=== PATIENT | male | born 1985 | race Caucasian/White ===

== ENCOUNTER 2018-02-20 05:57 | Inpatient (IN) | payer SELFPAY ==
[2018-02-20] VITALS (8 sets, daily range): BP systolic 109–126; BP diastolic 55–86; PULSE 52–75; RESP 9–18; TEMP 97.7–98; O2SAT 95–96
[~2018-02-20] VITALS: Ht 180.3 cm; Wt 89.0 kg
[2018-02-20] MEDS ORDERED: NALOXONE HCL 0.4 MG/ML AMP ONE (06:11)
--- NOTE | 2018-02-20 06:12 | PD ---
HPI . Heroin overdose Chief Complaint: OD/ Ingestion Time Seen by Provider: 06:03 Travel History International Travel<30 days: No Contact w/Intl Traveler<30days: No Traveled to known affect area: No History of Present Illness HPI Patient is found in a hotel he apparently injected himself with "$5 worth of heroin and was found obtunded unresponsive respiratory impression deciding paramedics arrived to give an IV access and then 0.4 mg of Narcan patient wakes up arrives there is no sign of trauma he was found lying on a couch and in the ER he is awake but still somnolent no other past medical history ROS and HPI is limited due to patient being intoxicated with heroin.. pt after repeated dose of narcan i nER he is Nauseous and I ask if there was Fentanyl in the IV " probably " he replies , Pt may need repeat dosing of Narcan , he received 0.4mg in EMS and 0.4 mg in ER Exam room on first 30 minutes of arrival [facility] Past Medical History Medical History: Denies Significant Hx Past Surgical History Surgical History: No Previous Surgery Social History Alcohol Use: No Tobacco Use: Yes Substance Use: Yes (HEROIN, METH ) Allergies-Medications (Allergen,Severity, Reaction): Coded Allergies: No Known Allergies (Unverified , 02/20/18) Reported Meds & Prescriptions Reported Meds & Active Scripts Active No Active Prescriptions or Reported Medications Review of Systems ROS Limitations: Intoxication (Heroin overdose) Physical Exam Narrative GENERAL: Mildly somnolent but awake no signs of trauma SKIN: Warm and dry. HEAD: Atraumatic. Normocephalic. No signs of trauma EYES: Pupils equal and round. No scleral icterus. No injection or drainage. ENT: No nasal bleeding or discharge. Mucous membranes pink and moist. NECK: Trachea midline. No JVD. CARDIOVASCULAR: Regular rate and rhythm. RESPIRATORY: No accessory muscle use. Clear to auscultation. Breath sounds equal bilaterally. GASTROINTESTINAL: Abdomen soft, non-tender, nondistended. Hepatic and splenic margins not palpable. MUSCULOSKELETAL: Extremities without clubbing, cyanosis, or edema. No obvious deformities. NEUROLOGICAL: Awake . No obvious cranial nerve deficits. Motor grossly within normal limits. Five out of 5 muscle strength in the arms and legs. PSYCHIATRIC: Somnolent but arousable Data Data Last Documented VS Vital Signs Date Time Temp Pulse Resp B/P (MAP) Pulse Ox O2 Delivery O2 Flow Rate FiO2 02/20/18 07:15 98 Partial Rebreather 15.00 02/20/18 06:04 98.0 65 18 117/57 (77) Orders Orders Naloxone Inj (Narcan Inj) (02/20/18 06:15) Naloxone Inj (Narcan Inj) (02/20/18 06:11) Ondansetron Odt (Zofran Odt) (02/20/18 06:15) Complete Blood Count With Diff (02/20/18 07:01) Comprehensive Metabolic Panel (02/20/18 07:01) Alcohol (Ethanol) (02/20/18 07:01) Chest, Single Ap (02/20/18 ) Naloxone Inj (Narcan Inj) (02/20/18 07:30) Metoclopramide Inj (Reglan Inj) (02/20/18 07:30) Naloxone Inj (Narcan Inj) (02/20/18 08:15) Admit Order (Ed Use Only) (02/20/18 09:55) Labs Laboratory Tests Test 02/20/18 07:11 White Blood Count 19.6 TH/MM3 Red Blood Count 4.66 MIL/MM3 Hemoglobin 14.1 GM/DL Hematocrit 42.8 % Mean Corpuscular Volume 91.9 FL Mean Corpuscular Hemoglobin 30.2 PG Mean Corpuscular Hemoglobin Concent 32.9 % Red Cell Distribution Width 12.5 % Platelet Count 277 TH/MM3 Mean Platelet Volume 7.9 FL Neutrophils (%) (Auto) 84.4 % Lymphocytes (%) (Auto) 9.0 % Monocytes (%) (Auto) 6.0 % Eosinophils (%) (Auto) 0.4 % Basophils (%) (Auto) 0.2 % Neutrophils # (Auto) 16.6 TH/MM3 Lymphocytes # (Auto) 1.8 TH/MM3 Monocytes # (Auto) 1.2 TH/MM3 Eosinophils # (Auto) 0.1 TH/MM3 Basophils # (Auto) 0.0 TH/MM3 CBC Comment DIFF FINAL Differential Comment Blood Urea Nitrogen 19 MG/DL Creatinine 0.90 MG/DL Random Glucose 151 MG/DL Total Protein 7.9 GM/DL Albumin 4.0 GM/DL Calcium Level 8.7 MG/DL Alkaline Phosphatase 65 U/L Aspartate Amino Transf (AST/SGOT) 73 U/L Alanine Aminotransferase (ALT/SGPT) 88 U/L Total Bilirubin 0.7 MG/DL Sodium Level 140 MEQ/L Potassium Level 3.7 MEQ/L Chloride Level 102 MEQ/L Carbon Dioxide Level 31.4 MEQ/L Anion Gap 7 MEQ/L Estimat Glomerular Filtration Rate 99 ML/MIN Ethyl Alcohol Level LESS THAN 3 MG/DL MDM Medical Decision Making Medical Screen Exam Complete: Yes Emergency Medical Condition: Yes Differential Diagnosis heroin IVDA overdose respiratory failure vs fentanyl overdose polysubstance overdose, otehr Narrative Course Pt given 0.4 mg Narcan EN route and in Exam I given another dose of Narcan, pt still sleepy and may have used extremely potent fentanyl and will need repeated doses of narcan , signed out to next MD at 7 AM Diagnosis Primary Impression: Heroin overdose Qualified Codes: T40.1X1A - Poisoning by heroin, accidental (unintentional), initial encounter Scripts No Active Prescriptions or Reported Meds Yvan Eubanks MD February 20, 2018 06:12
[2018-02-20] MEDS ORDERED: ONDANSETRON ODT 4 MG TAB PO ONE (06:15)
[2018-02-20] MEDS ORDERED: NALOXONE HCL 0.4 MG/ML AMP IV PUSH ONE ×2 (06:15→07:30)
--- NOTE | 2018-02-20 06:56 | PD ---
Physical Exam Date Seen by Provider: February 20, 2018 Time Seen by Provider: 06:55 Narrative The patient is a 32-year-old male who was initially evaluated by the previous physician. Please refer to the initial history, physical, diagnostic evaluation, and treatment modality plan. The patient was signed out at 7 AM with observation pending after heroin overdose. Data Data Last Documented VS Vital Signs Date Time Temp Pulse Resp B/P (MAP) Pulse Ox O2 Delivery O2 Flow Rate FiO2 02/20/18 07:15 98 Partial Rebreather 15.00 02/20/18 06:04 98.0 65 18 117/57 (77) Orders Orders Naloxone Inj (Narcan Inj) (02/20/18 06:15) Naloxone Inj (Narcan Inj) (02/20/18 06:11) Ondansetron Odt (Zofran Odt) (02/20/18 06:15) Complete Blood Count With Diff (02/20/18 07:01) Comprehensive Metabolic Panel (02/20/18 07:01) Alcohol (Ethanol) (02/20/18 07:01) Drug Screen, Random Urine (02/20/18 07:01) Chest, Single Ap (02/20/18 ) Naloxone Inj (Narcan Inj) (02/20/18 07:30) Metoclopramide Inj (Reglan Inj) (02/20/18 07:30) Naloxone Inj (Narcan Inj) (02/20/18 08:15) Admit Order (Ed Use Only) (02/20/18 09:55) Labs Laboratory Tests Test 02/20/18 07:11 White Blood Count 19.6 TH/MM3 Red Blood Count 4.66 MIL/MM3 Hemoglobin 14.1 GM/DL Hematocrit 42.8 % Mean Corpuscular Volume 91.9 FL Mean Corpuscular Hemoglobin 30.2 PG Mean Corpuscular Hemoglobin Concent 32.9 % Red Cell Distribution Width 12.5 % Platelet Count 277 TH/MM3 Mean Platelet Volume 7.9 FL Neutrophils (%) (Auto) 84.4 % Lymphocytes (%) (Auto) 9.0 % Monocytes (%) (Auto) 6.0 % Eosinophils (%) (Auto) 0.4 % Basophils (%) (Auto) 0.2 % Neutrophils # (Auto) 16.6 TH/MM3 Lymphocytes # (Auto) 1.8 TH/MM3 Monocytes # (Auto) 1.2 TH/MM3 Eosinophils # (Auto) 0.1 TH/MM3 Basophils # (Auto) 0.0 TH/MM3 CBC Comment DIFF FINAL Differential Comment Blood Urea Nitrogen 19 MG/DL Creatinine 0.90 MG/DL Random Glucose 151 MG/DL Total Protein 7.9 GM/DL Albumin 4.0 GM/DL Calcium Level 8.7 MG/DL Alkaline Phosphatase 65 U/L Aspartate Amino Transf (AST/SGOT) 73 U/L Alanine Aminotransferase (ALT/SGPT) 88 U/L Total Bilirubin 0.7 MG/DL Sodium Level 140 MEQ/L Potassium Level 3.7 MEQ/L Chloride Level 102 MEQ/L Carbon Dioxide Level 31.4 MEQ/L Anion Gap 7 MEQ/L Estimat Glomerular Filtration Rate 99 ML/MIN Ethyl Alcohol Level LESS THAN 3 MG/DL [facility] [place] Medical Record Reviewed: Yes Supervised Visit with BRITATNY: No Interpretation(s) Last Impressions Chest X-Ray 02/20/18 0000 Signed Impressions: CONCLUSION: 1. No acute cardiopulmonary disease. Laboratory Tests Test 02/20/18 07:11 White Blood Count 19.6 TH/MM3 Red Blood Count 4.66 MIL/MM3 Hemoglobin 14.1 GM/DL Hematocrit 42.8 % Mean Corpuscular Volume 91.9 FL Mean Corpuscular Hemoglobin 30.2 PG Mean Corpuscular Hemoglobin Concent 32.9 % Red Cell Distribution Width 12.5 % Platelet Count 277 TH/MM3 Mean Platelet Volume 7.9 FL Neutrophils (%) (Auto) 84.4 % Lymphocytes (%) (Auto) 9.0 % Monocytes (%) (Auto) 6.0 % Eosinophils (%) (Auto) 0.4 % Basophils (%) (Auto) 0.2 % Neutrophils # (Auto) 16.6 TH/MM3 Lymphocytes # (Auto) 1.8 TH/MM3 Monocytes # (Auto) 1.2 TH/MM3 Eosinophils # (Auto) 0.1 TH/MM3 Basophils # (Auto) 0.0 TH/MM3 CBC Comment DIFF FINAL Differential Comment Blood Urea Nitrogen 19 MG/DL Creatinine 0.90 MG/DL Random Glucose 151 MG/DL Total Protein 7.9 GM/DL Albumin 4.0 GM/DL Calcium Level 8.7 MG/DL Alkaline Phosphatase 65 U/L Aspartate Amino Transf (AST/SGOT) 73 U/L Alanine Aminotransferase (ALT/SGPT) 88 U/L Total Bilirubin 0.7 MG/DL Sodium Level 140 MEQ/L Potassium Level 3.7 MEQ/L Chloride Level 102 MEQ/L Carbon Dioxide Level 31.4 MEQ/L Anion Gap 7 MEQ/L Estimat Glomerular Filtration Rate 99 ML/MIN Ethyl Alcohol Level LESS THAN 3 MG/DL Differential Diagnosis Differential diagnosis includes heroin overdose, polysubstance abuse, opiate ingestion, alcohol intoxication, hypoxia, aspiration. Narrative Course The patient is a 32-year-old male was initially evaluated by the previous physician. Please refer to the initial history, physical, diagnostic evaluation , and treatment modality plan. The patient was signed out at 7 AM with observation pending after heroin overdose. The patient was injected Narcan 0.4 mg intravenously in the field, and then was redosed with Narcan 0.4 mg intravenously in the emergency department. The patient will be observed for evaluation of hypoxia after heroin ingestion and subsequent Narcan administration. The patient was reevaluated at 7 AM, was satting 88% on 4 L via nasal cannula. He was arousable with verbal stimuli. However, the patient was hypoxic on oxygen, therefore, chest x-ray was obtained. Alcohol level drug screen were sent to lab. The patient continued to be monitored. The patient was reevaluated at 7:15 AM, had desatted to 74%, was placed on a nonrebreather and administered Narcan 0.8 mg intravenously. The patient was reevaluated at 8 AM, was breathing at a respiratory rate of 8-10 /min, O2 sat 98% on nonrebreather. The patient was reevaluated at 8:15 AM, still has a respiratory rate of approximately 8-10, satting 99% on a nonrebreather. The patient is arousable to loud verbal stimuli and/or painful stimuli. Patient has multiple doses of Narcan, therefore, will be placed on a Narcan drip in an attempt to avoid intubation, patient will be admitted to intensive care unit. The patient was evaluated at 9:05 AM, his O2 sat is now 96% on O2 via nasal cannula at 4 L, currently on a Narcan drip, arousable to verbal stimuli. Critical Care Narrative Aggregate critical care time was 40 minutes. Time to perform other separately billable procedures was not included in the critical care time. My time did not include minutes spent treating any other patients simultaneously or on activities that did not directly contribute to the patient's treatment. The services I provided to this patient were to treat and/or prevent clinically significant deterioration that could result in: Anoxia, hypoxia, aspiration I provided critical care services requiring my management, as noted below: Chart data review, documentation time, medication orders and management, vital sign assessments/reviewing monitor data, ordering and reviewing lab tests, ordering and interpreting/reviewing x-rays and diagnostic studies, care of the patient and discussion of the patient with the admitting physicians. Physician Communication Physician Communication The on-call cut off saw operator was paged for admission. I discussed the patient with Dr. Palma who agrees with admission. Diagnosis Primary Impression: Heroin overdose Qualified Codes: T40.1X1A - Poisoning by heroin, accidental (unintentional), initial encounter Additional Impression: Hypoxia Admitting Information Admitting Physician Requests: Admit Scripts No Active Prescriptions or Reported Meds Condition: Stable Juanito Singh MD February 20, 2018 06:56
[2018-02-20 07:23] LABS: AUTOMATED NEUTROPHIL # 16.6 TH/MM3 (1.8-7.7); BASOPHIL % 0.2 % (0.0-2.0); EOSINOPHIL # 0.1 TH/MM3 (0-0.4); EOSINOPHIL % 0.4 % (0.0-4.0); HEMATOCRIT 42.8 % (39.0-51.0); HEMOGLOBIN 14.1 GM/DL (13.0-17.0); LYMPHOCYTE # 1.8 TH/MM3 (1.0-4.8); MEAN CELL VOLUME 91.9 FL (80.0-100.0); MEAN CORPUSCULAR HEMOGLOBIN 30.2 PG (27.0-34.0); MEAN CORPUSCULAR HGB CONC 32.9 % (32.0-36.0); MEAN PLATELET VOLUME 7.9 FL (7.0-11.0); MONOCYTE # 1.2 TH/MM3 (0-0.9); NEUT % 84.4 % (16.0-70.0); PLATELET COUNT 277 TH/MM3 (150-450); RED BLOOD COUNT 4.66 MIL/MM3 (4.50-5.90); RED CELL DISTRIBUTION WIDTH 12.5 % (11.6-17.2); WHITE BLOOD COUNT 19.6 TH/MM3 (4.0-11.0)
[2018-02-20] MEDS ORDERED: METOCLOPRAMIDE HCL 10 MG/2 ML VIAL IV PUSH ONE (07:30)
[2018-02-20 07:42] LABS: ALT (GPT) 88 U/L (12-78); AST (GOT) 73 U/L (15-37); BICARBONATE 31.4 MEQ/L (21.0-32.0); BLOOD UREA NITROGEN 19 MG/DL (7-18); CALCIUM 8.7 MG/DL (8.5-10.1); CHLORIDE 102 MEQ/L (98-107); GLOMERULAR FILTRATION RATE 99 ML/MIN (>89); GLUCOSE,RANDOM 151 MG/DL (74-106); SODIUM (NA) 140 MEQ/L (136-145)
[2018-02-20 07:44] LABS: ALKALINE PHOSPHATASE 65 U/L (45-117); TOTAL BILIRUBIN ADULT 0.7 MG/DL (0.2-1.0); TOTAL PROTEIN 7.9 GM/DL (6.4-8.2)
--- NOTE | 2018-02-20 07:53 | RADRPT ---
EXAM DATE: 02/20/2018 7:42 AM EDT AGE/SEX: 32 years / Male INDICATIONS: Shortness of breath after heroin overdose. CLINICAL DATA: This is the patient's initial encounter. Patient reports that signs and symptoms have been present for 1 day and indicates a pain score of 0/10. MEDICAL/SURGICAL HISTORY: None. None. COMPARISON: No prior [facility] exams available for comparison. FINDINGS: A single AP view of the chest demonstrates the lungs to be symmetrically aerated without evidence of mass, infiltrate or effusion. The cardiomediastinal contours are unremarkable. Osseous structures a re intact. CONCLUSION: 1. No acute cardiopulmonary disease. Electronically signed by: Medardo Wills MD 02/20/2018 7:52 AM EDT
[2018-02-20] MEDS ORDERED: NALOXONE INJ 4 MG in DEXTROSE 5% IN WATER INJ 246 ML IV PRN ×2 (08:15)
[2018-02-20] MEDS ORDERED: SENNOSIDES 8.6 MG TAB PO PRN (10:00)
[2018-02-20] MEDS ORDERED: CHLORHEXIDINE GLUCONATE 2 % 1 PACK (2 CLOTHS) TOP PRN (10:00)
[2018-02-20] MEDS ORDERED: LACTULOSE SYRUP 20 GM/30 ML CUP PO PRN (10:00)
[2018-02-20] MEDS ORDERED: RESP: ALBUTEROL 2.5 MG/IPRATROPIUM 0.5 MG NEB (PRN) INH (10:00)
[2018-02-20] MEDS ORDERED: MAGNESIUM HYDROXIDE SUSP 30 ML CUP PO PRN (10:00)
[2018-02-20] MEDS ORDERED: NURSING INFORMATION XX SCH (10:00)
[2018-02-20] MEDS ORDERED: SODIUM CHLORIDE 0.9% FLUSH 10 ML FLUSH IV FLUSH PRN (10:00)
[2018-02-20] MEDS ORDERED: BISACODYL 10 MG SUPP RECTAL PRN (10:00)
[2018-02-20] MEDS ORDERED: METOCLOPRAMIDE HCL 10 MG/2 ML VIAL IV PUSH PRN (10:00)
[2018-02-20] MEDS: RESP: ALBUTEROL 2.5 MG/IPRATROPIUM 0.5 MG NEB (SCH) INH ×2 (11:18→15:02)
[2018-02-20] MEDS ORDERED: ONDANSETRON ODT 4 MG TAB PO PRN (11:30)
[2018-02-20] MEDS ORDERED: D5-1/2 NS + KCL 20 MEQ INJ 1,000 ML IV SCH (12:00)
[2018-02-20] MEDS ORDERED: ENOXAPARIN SODIUM 40 MG/0.4 ML SYRINGE SQ SCH (12:00)
--- NOTE | 2018-02-20 13:58 | HHI.HP ---
HPI Service Critical Care Medicine Primary Care Physician No Primary Care Physician Admission Diagnosis Heroin overdose, hypoxia Diagnosis: Travel History International Travel<30 Days: No Contact w/Intl Traveler <30 Da: No Traveled to Known Affected Are: No History of Present Illness HPI 32-year-old male who reportedly injected himself with heroin laced with fentanyl IV and a hotel room around 4 AM this morning. He was brought to the ER after being found unresponsive. He received Narcan multiple doses and continued to have episodes of apnea and hypoxia and was placed on a nonrebreather facemask. He was subsequently started on a Narcan drip. Critical care was contacted and accepted patient for admission to the ICU. When I evaluated the patient in the ER he was on a Narcan drip and awake and alert. He was not in any acute distress. He gave me details of his history. He denied any other major medical problems. [facility] Past Medical History Medical History: Denies Significant Hx Past Surgical History Surgical History: No Previous Surgery Social History Alcohol Use: No Tobacco Use: Yes Substance Use: Yes (HEROIN, METH ) Allergies-Medications (Allergen,Severity, Reaction): Coded Allergies: No Known Allergies (Unverified , 02/20/18) Reported Meds & Prescriptions Reported Meds & Active Scripts Active No Active Prescriptions or Reported Medications Review of Systems ROS Limitations: Intoxication (Heroin overdose) Physical Exam Vital Signs Vital Signs Date Time Temp Pulse Resp B/P (MAP) Pulse Ox O2 Delivery O2 Flow Rate FiO2 02/20/18 12:13 02/20/18 11:09 66 16 109/55 (73) 95 Room Air 02/20/18 07:15 98 Partial Rebreather 15.00 02/20/18 06:04 98.0 65 18 117/57 (77) 95 Physical Exam HEENT/Neuro: No pallor or icterus, tongue moist, WAN, Awake alert oriented 3 , nonfocal grossly, moving all 4 extremities Neck: No JVD Chest/pulmonary: CTA bilaterally Cardiovascular: S1-S2 regular no gallop or murmur GI/abdomen: Soft, nontender, bowel sounds present Extremities: Warm bilaterally, no edema Laboratory Laboratory Tests Test 02/20/18 07:11 White Blood Count 19.6 Red Blood Count 4.66 Hemoglobin 14.1 Hematocrit 42.8 Mean Corpuscular Volume 91.9 Mean Corpuscular Hemoglobin 30.2 Mean Corpuscular Hemoglobin Concent 32.9 Red Cell Distribution Width 12.5 Platelet Count 277 Mean Platelet Volume 7.9 Neutrophils (%) (Auto) 84.4 Lymphocytes (%) (Auto) 9.0 Monocytes (%) (Auto) 6.0 Eosinophils (%) (Auto) 0.4 Basophils (%) (Auto) 0.2 Neutrophils # (Auto) 16.6 Lymphocytes # (Auto) 1.8 Monocytes # (Auto) 1.2 Eosinophils # (Auto) 0.1 Basophils # (Auto) 0.0 CBC Comment DIFF FINAL Differential Comment Blood Urea Nitrogen 19 Creatinine 0.90 Random Glucose 151 Total Protein 7.9 Albumin 4.0 Calcium Level 8.7 Alkaline Phosphatase 65 Aspartate Amino Transf (AST/SGOT) 73 Alanine Aminotransferase (ALT/SGPT) 88 Total Bilirubin 0.7 Sodium Level 140 Potassium Level 3.7 Chloride Level 102 Carbon Dioxide Level 31.4 Anion Gap 7 Estimat Glomerular Filtration Rate 99 Ethyl Alcohol Level LESS THAN 3 Result Diagram: 02/20/18 0711 02/20/18 0711 Caprini VTE Risk Assessment Caprini VTE Risk Assessment: No/Low Risk (score <= 1) Caprini Risk Assessment Model Point Value = 1 Point Value = 2 Point Value = 3 Point Value = 5 Age 41-60 Minor surgery BMI > 25 kg/m2 Swollen legs Varicose veins or History of unexplained or recurrent spontaneous Oral contraceptives or hormone replacement Sepsis (< 1 month) Serious lung disease, including pneumonia (< 1 month) Abnormal pulmonary function Acute myocardial infarction Congestive heart failure (< 1 month) History of inflammatory bowel disease Medical patient at bed rest Age 61-74 Arthroscopic surgery Major open surgery (> 45 min) Laparoscopic surgery (> 45 min) Malignancy Confined to bed (> 72 hours) Immobilizing plaster cast Central venous access Age >= 75 History of VTE Family history of VTE Factor V Leiden Prothrombin [id number] Lupus anticoagulant Anticardiolipin antibodies Elevated serum homocysteine Heparin-induced thrombocytopenia Other congenital or acquired thrombophilia Stroke (< 1 month) Elective arthroplasty Hip, pelvis, or leg fracture Acute spinal cord injury (< 1 month) Prophylaxis Regimen Total Risk Factor Score Risk Level Prophylaxis Regimen 0-1 Low Early ambulation 2 Moderate Order ONE of the following: *Sequential Compression Device (SCD) *Heparin 5000 units SQ BID 3-4 Higher Order ONE of the following medications: *Heparin 5000 units SQ TID *Enoxaparin/Lovenox 40 mg SQ daily (WT < 150 kg, CrCl > 30 mL/min) *Enoxaparin/Lovenox 30 mg SQ daily (WT < 150 kg, CrCl > 10-29 mL/min) *Enoxaparin/Lovenox 30 mg SQ BID (WT < 150 kg, CrCl > 30 mL/min) AND/OR *Sequential Compression Device (SCD) 5 or more Highest Order ONE of the following medications: *Heparin 5000 units SQ TID (Preferred with Epidurals) *Enoxaparin/Lovenox 40 mg SQ daily (WT < 150 kg, CrCl > 30 mL/min) *Enoxaparin/Lovenox 30 mg SQ daily (WT < 150 kg, CrCl > 10-29 mL/min) *Enoxaparin/Lovenox 30 mg SQ BID (WT < 150 kg, CrCl > 30 mL/min) AND *Sequential Compression Device (SCD) Assessment and Plan Assessment and Plan 32-year-old male with: Heroin/fentanyl overdose Substance abuse Acute respiratory failure Plan: Admitted to ICU. Titrated off Narcan drip provided neurologic status does not worsen. N.p.o. IV hydration Follow respiratory status. Dallin Palma MD February 20, 2018 13:58
[2018-02-20] MEDS ORDERED: SODIUM CHLORIDE 0.9% FLUSH 10 ML FLUSH IV FLUSH SCH (21:00)
[2018-02-20] MEDS ORDERED: DOCUSATE SODIUM 50 MG/SENNA 8.6 MG TAB PO SCH (21:00)
[2018-02-21] MEDS ORDERED: CHLORHEXIDINE GLUCONATE 2 % 1 PACK (2 CLOTHS) TOP SCH (04:00)
== END 2018-02-20 16:30 | disposition left against medical advice (07) | DRG 917 ==
LOC: NEPE 05:57 → NEDA 09:57 → HIMN 12:00
PROVIDERS: ADMIT Internal Medicine Critical Care Medicine; ATTEND Internal Medicine Critical Care Medicine
DX: T40.4X4A Poisoning by other synthetic narcotics, undetermined, initial encounter (principal); J96.00 Acute respiratory failure, unspecified whether with hypoxia or hypercapnia; T40.1X4A Poisoning by heroin, undetermined, initial encounter; F19.10 Other psychoactive substance abuse, uncomplicated; Z72.0 Tobacco use
CPT/HCPCS: 71045; 80053; 80307; 85025; 87641; 96365; 96375; 96376; J2310; J2765; J3480; J7060